=== PATIENT | male | born 1980 | race Hispanic/Latino ===

== ENCOUNTER → 2017-12-26 | Day surgery (SDC) | payer OTHER ==
[~2017-12-26] MED LIST: ATORVASTATIN CA20 MG PO; FENTANYL CITRATE/PF 100MCG/2 ML INJ ONE; LOSARTAN POTASS25 MG PEG; MIDAZOLAM HCL 2 MG/2 ML VIAL ONE; PROPOFOL IV EMULSION 10 MG/ML 50 ML VIAL ONE
[2017-12-26 11:15] VITALS: BP 118/73
== END | disposition home or self-care (01) ==
LOC: OR 06:33
PROVIDERS: ATTEND Internal Medicine Gastroenterology
DX: K92.1 Melena (principal); K64.8 Other hemorrhoids; K59.00 Constipation, unspecified; K21.9 Gastro-esophageal reflux disease without esophagitis; I10 Essential (primary) hypertension; G47.33 Obstructive sleep apnea (adult) (pediatric); R07.89 Other chest pain; R42 Dizziness and giddiness; Z68.32 Body mass index [BMI] 32.0-32.9, adult
CPT/HCPCS: 45378; J2250